=== PATIENT | female | born 1965 | race African-American/Black ===

== ENCOUNTER 2024-08-30 06:19 | Emergency (ER) | payer BC, OTHER ==
[2024-08-30] MEDS ORDERED: Ondansetron ODT 4 MG TAB ONE (06:27)
[2024-08-30] MEDS ORDERED: Sodium Chloride 0.9% 1,000 ML ONE (07:11)
[2024-08-30 07:16] LABS: ALT (SGPT) 22 U/L (8-55); AST (SGOT) 25 U/L (5-34); Albumin 4.7 g/dL (3.5-5.0); Alkaline Phosphatase 114 U/L (40-110); Anion Gap 18 mmol/L (10-20); BUN (Urea Nitrogen) 18 mg/dL (9.8-20.1); Bilirubin, Total 0.5 mg/dL (0.2-1.2); Calc. Creatinine Clearance 0 mL/min (70-130); Calcium 10.5 mg/dL (7.8-10.44); Carbon Dioxide 22 mmol/L (22-29); Chloride 104 mmol/L (98-107); Estimated GFR 61; Globulin 4.6 g/dL (2.4-3.5); Glucose 186 mg/dL (70-105); Protein, Total 9.3 g/dL (6.0-8.3); Sodium 141 mmol/L (136-145)
[2024-08-30 07:18] LABS: Hematocrit 50.3 % (36.0-47.0); Hemoglobin 15.6 g/dL (12.0-16.0); Mean Corpuscular Hemoglobin 28.1 pg (27.0-31.0); Mean Corpuscular Volume 90.8 fl (78.0-98.0); RBC Distribution Width 14.8 % (11.5-14.5); Red Blood Cell (RBC) Count 5.54 mill/uL (4.20-5.40)
[2024-08-30 07:19] LABS: Manual Diff?? YES; Mean Platelet Volume 8.6 fL (7.4-10.4); Platelet Count 409 10x3/uL (130-400)
[2024-08-30 07:22] LABS: Band 2 % (5-11); Lymphocytes 15 % (21-51); MDiff Complete? YES; Monocytes 10 % (0-10); Neutrophil 73 % (42-75)
[2024-08-30 07:23] LABS: Anisocytosis SLIGHT = 6-15 cells (100X) (0-5/hpf); Platelet Adequacy Comment Appears Adequate
[2024-08-30] MEDS ORDERED: Potassium Chloride 20 MEQ TAB ONE (07:27)
[2024-08-30 08:24] LABS: Amphetamine Not Detected (NotDetected); Barbiturates Screen Not Detected (NotDetected); Benzodiazepine Screen Not Detected (NotDetected); Cocaine Metabolite Screen Not Detected (NotDetected); Methadone Not Detected (NotDetected); Methamphetamine Not Detected (NotDetected); Opiate Screen Not Detected (NotDetected); Oxycodone Screen Not Detected (NotDetected); Phencyclidine (PCP) Not Detected (NotDetected); THC/Cannabinoid Screen Detected (NotDetected); Tricyclic Screen Not Detected (NotDetected)
[2024-08-30 08:29] LABS: Bilirubin Negative (Negative); Blood, Urine Trace (Negative); Clarity Clear (Clear); Glucose, Urine (Dipstick) Negative (Negative); Ketone, Urine Trace mg/dL (Negative); Leukocyte Negative (Negative); Nitrite Negative (Negative); Protein, Urine (Dipstick) > or equal to 300 mg/dL (Neg-Trace); Urobilinogen 0.2 mg/dL (Less than 2)
[2024-08-30 08:32] LABS: RBC/HPF 0-3 HPF (0-3)
[2024-08-30 08:33] LABS: Bacteria/HPF Rare-Few HPF (None Seen); CAUTI Indications for Culture Dysuria,urgency,freq; WBC/HPF 0-3 HPF (0-3)
[2024-08-30 08:34] LABS: Urine Culture Reflex No No
[2024-08-30] MEDS ORDERED: Iopamidol 370 76% 100 ML VIAL ONE (09:00)
[2024-08-30] MEDS ORDERED: Prochlorperazine 10 MG/2 ML VIAL ONE (09:03)
[2024-08-30] MEDS ORDERED: Dicyclomine 20 MG/2 ML VIAL ONE (09:03)
== END 2024-08-30 10:00 | disposition home or self-care (01) ==
LOC: MADERS 06:19
DX: K57.92 Diverticulitis of intestine, part unspecified, without perforation or abscess without bleeding (principal); E87.6 Hypokalemia; M85.80 Other specified disorders of bone density and structure, unspecified site; R80.9 Proteinuria, unspecified; N83.291 Other ovarian cyst, right side; I10 Essential (primary) hypertension
CPT/HCPCS: 36415; 74177; 80053; 80306; 81001; 83690; 85025; 96361; 96372; 96374; J0780; J7030; Q0162; Q9967